=== PATIENT | male | born 1985 | race American Indian/Alaskan Native ===

== ENCOUNTER → 2020-01-20 | Emergency (ER) | payer OTHER ==
[~2020-01-20] VITALS: Ht 190.5 cm; Wt 90.3 kg
[~2020-01-20] MED LIST: AUGMENTIN 875-1 EACH PO; CLEOCIN HCL300 MG PO; CLONAZEPAM0.5 MG PO; CLONAZEPAM1 M1 PO; CLONAZEPAM1 MG PO; DIPHENHYDRAMINE50 M1 PO; FAMOTIDINE20 MG PO; FLAGYL250 MG PO; HYDROCODON-ACE1 EA10 PO; HYDROXYZINE HCL25 MG PO; IBUPROFEN600 MG PO; MIRALAX17 GM PO; NABUMETONE750 MG PO; PRILOSEC OTC20 MG PO; TYLENOL EXTRA500 MG PO; TYLENOL325 MG PO; VITAMIN D325 MC2 PO; ZOFRAN4 MG PO
--- OUTSIDE RECORDS SUMMARY | 2020-01-20 09:42 | XMS ---
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 [place] has no Care Guidelines for this patient. [facility] V[facility] COUNT (12 [address] [facility] NOTE: Visits indicate total known visits. ED/[facility] VISIT TRACKING (12 MO.) 01/20/2020 09:39 [facility] [place] TYPE: Emergency COMPLAINT: - NECK PAIN 12/21/2019 09:20 [facility] [place] TYPE: Emergency COMPLAINT: - ABDOMINAL PAIN DIAGNOSES: - Epigastric pain - Allergy status to other drugs, medicaments and biological sub - Personal history of nicotine dependence - Other fpc (current) drug therapy INPATIENT VISIT TRACKING (12 MO.) No inpatient visits to display in this time frame [email or web address]
== END ==
LOC: ED 09:39
DX: T14.91XA Suicide attempt, initial encounter (principal); M54.12 Radiculopathy, cervical region; X83.8XXA Intentional self-harm by other specified means, initial encounter; Z87.891 Personal history of nicotine dependence; Z88.8 Allergy status to other drugs, medicaments and biological substances; Z79.899 Other long term (current) drug therapy
CPT/HCPCS: 70498; 80053; 80176; 81001; 84443; 85025; 99285-25; G0480